=== PATIENT | male | born 1995 ===

== ENCOUNTER 2019-04-28 07:39 | Emergency (ER) | payer OTHER ==
[~2019-04-28] VITALS: Ht 165.1 cm; Wt 56.2 kg
== END 2019-04-28 09:14 | disposition home or self-care (01) ==
LOC: ER 07:39
DX: S61.226A Laceration with foreign body of right little finger without damage to nail, initial encounter (principal); W45.8XXA Other foreign body or object entering through skin, initial encounter; Y93.89 Activity, other specified; Y92.69 Other specified industrial and construction area as the place of occurrence of the external cause; Y99.8 Other external cause status